=== PATIENT | male | born 1990 ===

== ENCOUNTER 2018-08-05 06:48 | Emergency (ER) | payer SELFPAY ==
[2018-08-05 07:05] VITALS: O2SAT 98
[2018-08-05] MEDS ORDERED: Bacitracin 500 Units/gm Oint Foilpak UD ONE (07:34)
[2018-08-05] MEDS ORDERED: Tdap Vaccine 0.5 ml Vial (10-64 yrs) IM ONE ×2 (07:42→07:50)
[2018-08-05] MEDS ORDERED: Lidocaine 1% Inj (20ml) INFIL ONE (07:59)
[2018-08-05] MEDS ORDERED: Lidocaine Hydrochloride 10 ML INJ ONE (08:01)
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
[2018-08-05 10:10] VITALS: BP 136/79; RESP 18; TEMP 98
[2018-08-05 11:07] VITALS: PULSE 78
== END 2018-08-05 11:07 | disposition home or self-care (01) ==
LOC: C.ER 06:48
DX: S61.411A Laceration without foreign body of right hand, initial encounter (principal); S05.12XA Contusion of eyeball and orbital tissues, left eye, initial encounter; V18.0XXA Pedal cycle driver injured in noncollision transport accident in nontraffic accident, initial encounter; Y93.55 Activity, bike riding
CPT/HCPCS: 12002; 70486; 73130; 90471; 90715; 96372; 99285; J2270

== ENCOUNTER 2018-08-15 11:40 | Emergency (ER) | payer SELFPAY ==
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
[2018-08-15 12:38] VITALS: O2SAT 100
[2018-08-15] MEDS ORDERED: Bacitracin 500 Units/gm Oint Foilpak UD ONE (13:43)
== END 2018-08-15 13:49 | disposition home or self-care (01) ==
LOC: C.ER 11:40
DX: S61.411D Laceration without foreign body of right hand, subsequent encounter (principal)

== ENCOUNTER 2018-08-17 13:58 | Emergency (ER) | payer SELFPAY ==
[2018-08-17 14:03] VITALS: O2SAT 99
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
[2018-08-17] MEDS ORDERED: Bacitracin 500 Units/gm Oint Foilpak UD ONE (15:37)
[2018-08-17 15:48] VITALS: BP 117/71; PULSE 72; RESP 20; TEMP 98
== END 2018-08-17 15:48 | disposition home or self-care (01) ==
LOC: C.ER 13:58
DX: S61.411D Laceration without foreign body of right hand, subsequent encounter (principal); V18.0XXD Pedal cycle driver injured in noncollision transport accident in nontraffic accident, subsequent encounter